=== PATIENT | female | born 1985 | race African-American/Black ===

== ENCOUNTER 2017-09-11 14:05 | Emergency (ER) | payer MEDICAID ==
[~2017-09-11] VITALS: Ht 175.3 cm; Wt 95.3 kg
[~2017-09-11 14:05] MED LIST: NYQUIL
[2017-09-11 14:09] VITALS: BP 105/77
--- NOTE | 2017-09-11 14:14 | NUR ---
PT PLACED IN BED 4 BY EMS.
--- NOTE | 2017-09-11 14:49 | NUR ---
PT BIBA FROM HOME WITH C/O GENERALIZED ABD PAIN WITH N/V/D X1 HOUR; PT RECEIVED 4MG ZOFRAN ODT PRIOR TO ARRIVAL. ABD SOFT, SLIGHTLY TENDER WITH PALPATION. DENIES ANY FEVERS/CHILLS. PT INFORMED TO GIVE US URINE. HX DENIES
--- NOTE | 2017-09-11 15:40 | NUR ---
Pt left without discharge instructions. Pt left facility without any further treatment.
== END 2017-09-11 15:40 | disposition left against medical advice (07) ==
LOC: MED 14:05
DX: R10.13 Epigastric pain (principal); R11.2 Nausea with vomiting, unspecified; R19.7 Diarrhea, unspecified; Z79.899 Other long term (current) drug therapy
CPT/HCPCS: 81002; 81025; 99283

== ENCOUNTER 2019-03-20 12:16 | Emergency (ER) | payer MEDICAID ==
[~2019-03-20] VITALS: Ht 172.7 cm; Wt 81.6 kg
[2019-03-20 12:24] VITALS: BP 123/88
--- NOTE | 2019-03-20 14:48 | NUR ---
PATIENT LEFT WITHOUT BEING SEEN BY DR. SMALLWOOD. NO FURTHER CARE PROVIDED FOR PATIENT.
== END 2019-03-20 14:48 | disposition left against medical advice (07) ==
LOC: MED 12:16
DX: O26.891 Other specified pregnancy related conditions, first trimester (principal); T80.29XA Infection following other infusion, transfusion and therapeutic injection, initial encounter; M54.5 Low back pain; L02.212 Cutaneous abscess of back [any part, except buttock and flank]; Z3A.01 Less than 8 weeks gestation of pregnancy; Z53.21 Procedure and treatment not carried out due to patient leaving prior to being seen by health care provider; Y92.89 Other specified places as the place of occurrence of the external cause